=== PATIENT | male | born 1975 | race Caucasian/White ===

== ENCOUNTER → 2023-04-15 11:49 | Outpatient (CLI) | payer OTHER, SELFPAY ==
--- NOTE | 2023-04-15 | DI.RAD.S_ITS ---
PROCEDURE: XR SHOULDER LT MIN 2V INDICATIONS: adhesive capsulitis of left shoulder TECHNIQUE: 3 views of the shoulder were acquired. COMPARISON: None. FINDINGS: Bones: No fractures or dislocations. No suspicious bony lesions. Visualized ribs appear intact. Soft tissues: No suspicious soft tissue calcifications. IMPRESSION: No significant osseous abnormality identified. Dictated by: Julio Conley M.D. on 04/15/2023 at 14:23 Approved by: Julio Conley M.D. on 04/15/2023 at 14:23
== END ==
PROVIDERS: PCP Internal Medicine; Referring Provider Internal Medicine; Visit Provider Internal Medicine
DX: M75.02 Adhesive capsulitis of left shoulder (principal)
CPT/HCPCS: 73030